=== PATIENT | male | born 1995 | race Caucasian/White ===

== ENCOUNTER → 2016-08-23 | Outpatient (CLI) | payer BC, OTHER ==
[~2016-08-23] MED LIST: ASPI-390 PO; IBUP-1050 PO
== END | disposition home or self-care (01) ==
LOC: C.RDSM 08:00
PROVIDERS: ATTEND Physical Medicine & Rehabilitation
DX: M25.532 Pain in left wrist (principal)

== ENCOUNTER → 2016-09-22 | Outpatient (CLI) | payer BC, OTHER ==
--- NOTE | 2016-09-23 07:51 | DIAGNOSTIC IMAGING REPORT ---
LEFT FOREARM 2 VIEWS CLINICAL HISTORY: Distal ulnar fracture COMPARISON: Left wrist dated 08/23/2016 DISCUSSION: There is a healing fracture of the distal ulna. The fracture is nondisplaced. No additional fractures are visualized. IMPRESSION: Healing nondisplaced fracture of the distal ulna. Electronically signed by: Andrew Hernandez M.D. 09/23/2016 7:50 AM Dictated Date/Time: 09/23/2016 7:49 AM
== END | disposition home or self-care (01) ==
LOC: C.RDSM 08:20
PROVIDERS: ATTEND Family Medicine
DX: S52.602A Unspecified fracture of lower end of left ulna, initial encounter for closed fracture (principal); X58.XXXA Exposure to other specified factors, initial encounter